=== PATIENT | male | born 1970 | race Caucasian/White ===

== ENCOUNTER 2017-03-24 11:55 | Inpatient (IN) | payer OTHER ==
[2017-03-24] MEDS ORDERED: ASPIRIN PO ONE (12:22)
[2017-03-24 13:00] LABS: Basophils # (Auto) 0.1 K/mm3 (0.0-0.1); Basophils % (Auto) 1.1 % (0.0-1.8); Eosinophils # (Auto) 0.2 K/mm3 (0.0-0.4); Eosinophils % (Auto) 2.5 % (0.0-4.3); Hematocrit 46.8 % (35.5-45.6); Lymphocytes # (Auto) 2.6 K/mm3 (1.2-5.4); Lymphocytes % (Auto) 27.7 % (13.4-35.0); Mean Corpuscular HGB Conc 34 % (32-34); Mean Corpuscular Hemoglobin 32 pg (28-32); Mean Corpuscular Volume 92 fl (84-94); Monocytes % (Auto) 10.2 % (0.0-7.3); Platelet Count 263 K/mm3 (140-440); Red Blood Count 5.07 M/mm3 (3.65-5.03); Red Cell Distribution Width 13.8 % (13.2-15.2)
[2017-03-24 13:30] LABS: BUN/Creatinine Ratio 14; Blood Urea Nitrogen 11 mg/dL (9-20); Calcium 8.9 mg/dL (8.4-10.2); Hemolysis Index 18
--- NOTE | 2017-03-24 13:57 | XRay Report ---
ROUTINE CHEST, TWO VIEWS: HISTORY: Cough. The trachea, heart, mediastinal contour, lung ivey and bony thorax are unremarkable. IMPRESSION: Unremarkable chest x-ray.
[2017-03-24] MEDS ORDERED: MILK OF MAGNESIA PO PRN (14:44)
[2017-03-24] MEDS ORDERED: TYLENOL PO PRN (14:44)
[2017-03-24] MEDS ORDERED: ZOFRAN IV PRN (14:44)
[2017-03-24] MEDS ORDERED: DULCOLAX PR PRN (14:44)
[2017-03-24] MEDS ORDERED: SODIUM CHLORIDE FLUSH SYRINGE 10 ML IV PRN ×2 (14:44→14:48)
--- NOTE | 2017-03-24 14:44 | History and Physical Report ---
History of Present Illness Chief complaint: My chest hurts History of present illness: 46 YO Male with Obesity, ME presents to ED for evaluation. Pt states that he has experienced pain in his chest. Pt states that he was at his job working around 0600 hrs when he experienced acute onset pain in his chest. Pain was 6/10 , substernal, nonradiating, moderate in intensity, worse with exertion, relieved with rest, associated with shortness of breath, and heaviness in his chest. Pt denies fever, chills, Palpitations, NVD, productive cough, BRBPR, hemoptysis, recent ill contacts, syncope, trauma, prolonged travel/immobility, leg swelling, calf pain,or skin rash. Pt seen and evaluated in ED and found to have ACS. Pt admitted to telemetry, cardiology consulted, Past History Past Medical History: other (obesity) Past Surgical History: No surgical history, Other (reviewed) Social history: , lives with family. denies: smoking, alcohol abuse, prescription drug abuse Family history: hypertension Medications and Allergies Allergies Allergy/AdvReac Type Severity Reaction Status Date / Time No Known Allergies Allergy Verified 03/24/17 11:56 Home Medications Medication Instructions Recorded Confirmed Last Taken Type No Known Home Medications [No 03/24/17 03/24/17 Unknown History Reported Home Medications] Review of Systems Constitutional: no weight loss, no weight gain, no fever, no chills, no sweats Ears, nose, mouth and throat: no ear pain, no ear discharge, no tinnitis, no decreased hearing, no nose pain, no nasal congestion Cardiovascular: chest pain, shortness of breath, no orthopnea, no palpitations, no rapid/irregular heart beat, no edema, no syncope Respiratory: no cough, no cough with sputum, no excessive sputum Gastrointestinal: no nausea, no vomiting, no diarrhea Genitourinary Male: no hematuria, no flank pain, no discharge, no urinary frequency, no urinary hesitancy Rectal: no pain, no incontinence, no bleeding Musculoskeletal: no neck stiffness, no neck pain, no shooting arm pain, no arm numbness/tingling, no low back pain, no shooting leg pain Integumentary: no rash, no pruritis, no redness, no sores, no wounds Neurological: no transient paralysis, no paralysis, no weakness, no parathesias , no numbness, no tingling, no seizures Psychiatric: no memory loss, no change in sleep habits, no sleep disturbances, no insomnia, no hypersomnia, no change in appetite Endocrine: no heat intolerance, no polyphagia, no excessive thirst, no polydipsia, no polyuria, no nocturia Hematologic/Lymphatic: no easy bruising, no easy bleeding Allergic/Immunologic: no urticaria, no allergic rhinitis, no wheezing Exam - Constitutional General appearance: Present: obese - EENT Eyes: Present: PERRL ENT: hearing intact, clear oral mucosa - Neck Neck: Present: supple, normal ROM - Respiratory Respiratory effort: normal Respiratory: bilateral: CTA - Cardiovascular Heart Sounds: Present: S1 & S2. Absent: rub, click - Extremities Extremities: pulses symmetrical, No edema Peripheral Pulses: within normal limits - Abdominal General gastrointestinal: Present: soft, non-tender, non-distended, normal bowel sounds Male genitourinary: Present: normal - Integumentary Integumentary: Present: clear, warm, dry - Musculoskeletal Musculoskeletal: gait normal, strength equal bilaterally - Psychiatric Psychiatric: appropriate mood/affect, intact judgment & insight - Neurologic Neurologic: CNII-XII intact, moves all extremities Results - Labs CBC & Chem 7: 03/24/17 12:41 03/24/17 14:52 Labs: Abnormal lab results 03/24/17 Range/Units 12:41 RBC 5.07 H (3.65-5.03) M/mm3 Hgb 16.0 H (11.8-15.2) gm/dl Hct 46.8 H (35.5-45.6) % Gilmer % (Auto) 10.2 H (0.0-7.3) % Gilmer # 1.0 H (0.0-0.8) K/mm3 Assessment and Plan - Patient Problems (1) ACS (acute coronary syndrome) Current Visit: Yes Status: Acute Plan to address problem: Admit to telemetry, serial cardiac enzymes, ekg, echo, stress test, d dimer, cardiology consulted, morphine, supplemental oxygen, nitro tabs, aspirin, supportive care, lipid panel, (2) Obesity Current Visit: Yes Status: Acute Plan to address problem: increased physical activity, balanced diet,
[2017-03-24] MEDS ORDERED: BABY ASPIRIN PO STA (14:48)
[2017-03-24] MEDS ORDERED: NITROSTAT SL PRN (14:48)
[2017-03-24] MEDS ORDERED: MORPHINE IV PRN (14:51)
--- NOTE | 2017-03-24 14:54 | Emergency Department Report ---
ED Chest Pain HPI - General Chief Complaint: Chest Pain Stated Complaint: CHEST PAIN Time Seen by Provider: 03/24/17 12:26 Source: patient, EMS Mode of arrival: Stretcher Limitations: No Limitations - History of Present Illness Initial Comments: Patient is a 46-year-old male who is presenting with chest pain. Patient states he does not know whether he has a history of hypertension or diabetes he's had very little healthcare in the past. 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 Patient states that the pain was a 6 out of 10) Pain Location: substernal Pain Radiation: none Severity: moderate Severity scale (0 -10): 6 Quality: tightness Consistency: now resolved Improves With: rest Worsens With: exertion re: nausea Other Symptoms: denies: cough, fever, rash, acid taste in mouth, leg swelling, palpitations Treatments Prior to Arrival: none - Related Data Allergies Allergy/AdvReac Type Severity Reaction Status Date / Time No Known Allergies Allergy Verified 03/24/17 11:56 Heart Score - HEART Score History: Highly suspicious EKG: Normal Age: < 45 Risk factors: No known risk factors Troponin: < normal limit HEART Score: 2 ED Review of Systems ROS: Stated complaint: CHEST PAIN Other details as noted in HPI Constitutional: denies: chills, fever Eyes: denies: eye pain, eye discharge, vision change ENT: denies: ear pain, throat pain Respiratory: denies: cough, shortness of breath, wheezing Cardiovascular: denies: palpitations, dyspnea on exertion Endocrine: no symptoms reported Gastrointestinal: denies: abdominal pain, nausea, diarrhea Genitourinary: denies: urgency, dysuria Musculoskeletal: denies: back pain, joint swelling, arthralgia Skin: denies: rash, lesions Neurological: denies: headache, weakness, paresthesias Psychiatric: denies: anxiety, depression Hematological/Lymphatic: denies: easy bleeding, easy bruising ED Past Medical Hx - Past Medical History Previous Medical History?: Yes Hx Heart Attack/AMI: Yes (2007) ED Physical Exam - General Limitations: No Limitations General appearance: alert, in no apparent distress - Head Head exam: Present: atraumatic, normocephalic - Eye Eye exam: Present: normal appearance - ENT ENT exam: Present: mucous membranes moist - Neck Neck exam: Present: normal inspection - Respiratory Respiratory exam: Present: normal lung sounds bilaterally. Absent: respiratory distress - Cardiovascular Cardiovascular Exam: Present: regular rate, normal rhythm. Absent: systolic murmur, diastolic murmur, rubs, gallop - GI/Abdominal GI/Abdominal exam: Present: soft, normal bowel sounds - Rectal Rectal exam: Present: deferred - Extremities Exam Extremities exam: Present: normal inspection - Back Exam Back exam: Present: normal inspection - Neurological Exam Neurological exam: Present: alert, oriented X3 - Psychiatric Psychiatric exam: Present: normal affect, normal mood - Skin Skin exam: Present: warm, dry, intact, normal color. Absent: rash ED Medical Decision Making - Lab Data Result diagrams: 03/24/17 12:41 03/24/17 12:41 - EKG Data -: EKG Interpreted by Me (sinus rhythm rate of 72 normal intervals and normal axis and ST segment ekg) - Radiology Data Radiology results: image reviewed No acute process Critical Care Time: Yes Critical care time in (mins) excluding proc time.: 30 Critical care attestation.: If time is entered above; I have spent that time in minutes in the direct care of this critically ill patient, excluding procedure time. ED Disposition Clinical Impression: Chest pain Disposition: 09 OP ADMIT IP TO THIS HOSP Is pt being admited?: Yes Does the pt Need Aspirin: Yes Condition: Fair Instructions: Chest Pain (ED) Referrals: PRIMARY CARE,MD [Primary Care Provider] - 3-5 Days
[2017-03-24 15:43] LABS: BUN/Creatinine Ratio 14; Blood Urea Nitrogen 11 mg/dL (9-20); Calcium 9.4 mg/dL (8.4-10.2); Hemolysis Index 21
[2017-03-24 15:47] LABS: Chol/HDL Ratio 3.51 %
[2017-03-24] MEDS ORDERED: BABY ASPIRIN ONE (18:21)
[2017-03-25 12:53] VITALS: BP 151/90
--- NOTE | 2017-03-25 13:06 | Event Note ---
Date: 03/25/17 Chest Pain and shortness of breath No ischemia by MPI No exercise induced ischemic changes Normal LVEF by echo Normal CXR Normal ECG Negative troponin May go home cardiac montilla
--- NOTE | 2017-03-25 14:12 | Discharge Summary ---
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 CXR WNL. Patient chest pain probably from musculoskeletal. He was treated with IV fluid hydration. Patient is clinically improved Patient advised to follow-up with his primary care provider. Discharge Diagnosed Chest Pain due to Costochondritis Morbid obesity with >34 BMI Disposition: DC-01 TO HOME OR SELFCARE Time spent for discharge: 33 minutes Core Measure Documentation - Palliative Care Palliative Care/ Comfort Measures: Not Applicable - Core Measures Any of the following diagnoses?: none Exam - Constitutional Vitals: Temp Pulse Resp BP Pulse Ox 98.6 F 90 20 151/90 95 03/25/17 12:39 03/25/17 12:39 03/25/17 12:39 03/25/17 12:39 03/25/17 12:39 General appearance: Present: no acute distress - EENT Eyes: Present: PERRL ENT: hearing intact - Neck Neck: Present: supple - Respiratory Respiratory effort: normal Respiratory: bilateral: CTA - Cardiovascular Rhythm: regular Heart Sounds: Present: S1 & S2 - Abdominal General gastrointestinal: Present: soft, non-tender Male genitourinary: Present: deferred - Rectal Rectal Exam: deferred - Integumentary Integumentary: Present: clear, warm, dry - Musculoskeletal Musculoskeletal: strength equal bilaterally - Psychiatric Psychiatric: appropriate mood/affect - Neurologic Neurologic: moves all extremities - Allied Health Allied health notes reviewed: nursing Plan Diet: low fat, low cholesterol, low salt Follow up with: [facility] [Provider Group] - 7 Days PRIMARY CARE, [Primary Care Provider] - 3-5 Days Prescriptions: Aspirin [Adult Low Dose Aspirin EC] 81 mg PO DAILY 30 Days tablet.
[2017-03-25 14:24] LABS: Amphetamine Screen,Urine PRESUMPTIVE NEGATIVE; Benzodiazepines Screen,Urine PRESUMPTIVE NEGATIVE; Methadone Screen,Urine PRESUMPTIVE NEGATIVE; Opiate Screen,Urine PRESUMPTIVE NEGATIVE
[2017-03-25 14:38] LABS: Cannabinoid Screen,Urine PRESUMPTIVE POSITIVE; Cocaine Screen,Urine PRESUMPTIVE POSITIVE
--- NOTE | 2017-03-25 23:29 | Treadmill Report ---
INDICATION: Chest pain. ORDERING PHYSICIAN: Moo Fink MD FINDINGS: There is no scintigraphic evidence of myocardial ischemia. The left ventricle is normal in size and systolic function. The left ventricular ejection fraction is measured at 56%. Normal wall motion and wall thickening is noted on gated imaging. CONCLUSION: Normal perfusion scan. JOB# [id number] MELITON/GLENN
== END 2017-03-25 14:59 | disposition home or self-care (01) | DRG 206 ==
LOC: ED 11:55 → 4A 14:44
PROVIDERS: ADMIT Internal Medicine; ATTEND Internal Medicine
DX: M94.0 Chondrocostal junction syndrome [Tietze] (principal); E66.01 Morbid (severe) obesity due to excess calories; Z68.34 Body mass index [BMI] 34.0-34.9, adult; I25.2 Old myocardial infarction; Z82.49 Family history of ischemic heart disease and other diseases of the circulatory system
CPT/HCPCS: 36415; 71046; 78452; 80048; 80061; 80307; 84484; 85025; 85379; 93005; 93010; 93017; 93306; A9270-GY; A9502